=== PATIENT | male | born 1980 | race Caucasian/White ===

== ENCOUNTER 2017-10-02 10:36 | Emergency (ER) | payer BC ==
--- NOTE | 2017-10-02 12:26 | UC ---
Abdominal Pain Male HPI - History of Current Complaint Chief Complaint: UCGeneralIllness Stated Complaint: VOMITING DIARRHEA Time Seen by Provider: 10/02/17 12:08 Pain Intensity: 8 - Allergies/Home Medications Allergies/Adverse Reactions: Allergies Allergy/AdvReac Type Severity Reaction Status Date / Time Penicillins Allergy Hives Verified 10/02/17 11:15 PMH/Surg Hx/FS Hx/Imm Hx - Surgical History Surgical History: None Surgery Procedure, Year, and Place: denies - Social History Alcohol Use: None Substance Use Type: None Smoking Status (MU): Heavy Every Day Tobacco Smoker - Immunization History Most Recent Tetanus Shot: UTD Physical Exam Vital Signs: Initial Vital Signs Temp 99.5 F 10/02/17 11:11 Pulse 89 10/02/17 11:11 Resp 18 10/02/17 11:11 BP 148/94 10/02/17 11:11 Pulse Ox 97 10/02/17 11:11 Discharge - Discharge Plan Condition: Stable Disposition: HOME Prescriptions: Ondansetron ODT TAB* [Zofran 4 MG Odt TAB*] 4 mg PO Q8H PRN #4 tab.odt PRN Reason: Nausea/Vomiting Patient Education Materials: Acute Nausea and Vomiting (ED) Forms: *Work Release Referrals: [facility] [place] [facility] [Outside] - If Needed - Billing Disposition and Condition Condition: STABLE Disposition: HOME
== END 2017-10-02 12:30 | disposition home or self-care (01) ==
LOC: UCEAST 10:36
DX: R11.2 Nausea with vomiting, unspecified (principal); Z88.0 Allergy status to penicillin; F17.210 Nicotine dependence, cigarettes, uncomplicated
CPT/HCPCS: 81003; 99202; G0463